=== PATIENT | female | born 1990 | race Caucasian/White ===

== ENCOUNTER 2017-01-28 19:55 | Emergency (ER) | payer BC ==
[~2017-01-28] VITALS: Ht 165.1 cm; Wt 73.3 kg
[2017-01-28 21:10] VITALS: BP 136/84; PULSE 85; RESP 18; TEMP 98.3; O2SAT 98
[2017-01-28] MEDS ORDERED: [UNRECOGNIZED DRUG - REMARK] PO (21:10)
--- NOTE | 2017-01-28 21:41 | PD ---
HPI Chief Complaint: Injury Time Seen by Provider: 21:20 Travel History International Travel<30 days: No Contact w/Intl Traveler<30days: No Traveled to known affect area: No History of Present Illness HPI 26-year-old female presents to the emergency room for evaluation of left third finger deformity and pain. Patient was walking her dog when he pulled and the leash got caught on her finger. She had immediate pain and saw that her finger was facing the wrong way. She reports significant pain and mild paresthesias. She came straight to the emergency room. Patient denies any chronic medical problems. [facility] Past Medical History Medical History: Denies Significant Hx Diminished Hearing: No Immunizations Current: Yes Tetanus Vaccination: < 5 Years Influenza Vaccination: Yes ?: Not LMP: Approx. 3 weeks ago Past Surgical History Surgical History: No Previous Surgery Social History Alcohol Use: No Tobacco Use: No Substance Use: No Allergies-Medications (Allergen,Severity, Reaction): Coded Allergies: No Known Allergies (Verified , 01/28/17) Reported Meds & Prescriptions Reported Meds & Active Scripts Active Reported [ control pills] 1 Tab PO DAILY Review of Systems Except as stated in HPI: all other systems reviewed are Neg Physical Exam Narrative GENERAL: Well-nourished, well-developed female in no acute distress. Afebrile. Ambulatory. SKIN: Focused skin assessment warm/dry. Mild ecchymosis of the left third finger. HEAD: Normocephalic. EYES: No scleral icterus. No injection or drainage. NECK: Supple, trachea midline. No JVD or lymphadenopathy. CARDIOVASCULAR: Regular rate and rhythm without murmurs, gallops, or rubs. RESPIRATORY: Breath sounds equal bilaterally. No accessory muscle use. EXTREMITY: Right third finger tender to palpation. The DIP is dislocated with dorsal angulation. Less than 2 second capillary refill distally. Distal sensation intact. Limited range of motion secondary to pain and dislocation. Data Data Last Documented VS Vital Signs Date Time Temp Pulse Resp B/P Pulse Ox O2 Delivery O2 Flow Rate FiO2 01/28/17 21:10 98.3 85 18 136/84 98 Orders Finger ([id number]) (01/28/17 ) Lidocaine Pf 1% Inj (Xylocaine-Mpf 1% In (01/28/17 21:45) Bupivacaine Pf 0.5% Inj (Marcaine Pf 0.5 (01/28/17 21:45) Finger ([id number]) (01/28/17 ) Splint Or Brace Apply/Monitor (01/28/17 22:37) [facility] Medical Decision Making Medical Screen Exam Complete: Yes Emergency Medical Condition: Yes Medical Record Reviewed: Yes Differential Diagnosis Fracture, sprain, dislocation, contusion Narrative Course 26 year-old female presents to the emergency room for evaluation of left third finger pain, swelling, and obvious deformity after her dog's leash got caught her finger just prior to arrival. Physical exam reveals left third dislocated DIP. Finger is neurovascularly intact with less than 2 second capillary refill distally. Range of motion secondary to pain. X-ray shows fracture dislocation. Digital block was performed and finger was reduced, see procedure note for details. Postreduction x-ray shows anatomical alignment. Patient was placed in an ulnar gutter splint and told to follow-up in one week with her primary care physician for repeat x-rays. Patient was splinted and discharged with instructions to follow up with a hand surgeon or return to the emergency room for worsening symptoms. She understands and agrees to plan. Procedures Procedure Narrative REDUCTION: Patient's finger supported at the MCP joint. Patient's DIP was held longitudinal traction was applied. While maintaining traction, 3. pressure was used to bring the distal fragment alignment with the proximal fragment. Neurovascular status maintained. Splint applied. Diagnosis Primary Impression: Dislocation of left middle finger Qualified Code: S63.253A - Dislocation of left middle finger, initial encounter Referrals: Primary Care Physician Patient Instructions: Finger Dislocation (ED), General Instructions Additional Instructions: Rest and drink plenty of fluids. Keep splint on. Take ibuprofen with food as directed, as needed for pain. Apply ice to the affected area for 20 minutes at a time, as needed for pain and swelling. Follow-up with a hand surgeon. Return to the emergency room for worsening symptoms. Disposition: 01 DISCHARGE HOME Condition: Stable Sangeetha Santo Jan 28, 2017 21:41
[2017-01-28] MEDS ORDERED: LIDOCAINE HCL 1% PF 30 ML VIAL INFIL ONE (21:45)
[2017-01-28] MEDS ORDERED: BUPIVACAINE HCL PF 0.5% 10 ML VIAL INFIL ONE (21:45)
--- NOTE | 2017-01-28 21:54 | RADRPT ---
EXAM DATE/TIME: 01/28/2017 21:18 [facility] COMPARISON: No previous studies available for comparison. INDICATIONS : Left 3rd digit pain after patient injured finger walking her dog today MEDICAL HISTORY : None. SURGICAL HISTORY : None. ENCOUNTER: Initial ACUITY: 1 day PAIN SCORE: 10/10 LOCATION: Left distal 3rd digit FINDINGS: There is no fracture or dislocation at the DIP joint third finger. CONCLUSION: Fracture DIP joint third finger dislocation. Frank Rolon MD FACR on January 28, 2017 at 21:52 Board Certified Radiologist. This report was verified electronically.
--- NOTE | 2017-01-28 22:27 | RADRPT ---
EXAM DATE/TIME: 01/28/2017 22:15 [facility] COMPARISON: FINGER LEFT 3RD DIGIT ([id number]), January 28, 2017, 21:18. INDICATIONS : Posr reduction left third digit dislocation MEDICAL HISTORY : None. SURGICAL HISTORY : None. ENCOUNTER: Initial ACUITY: 1 day PAIN SCORE: 0/10 LOCATION: Left third digit FINDINGS: Alignment is now anatomic with the small corner fracture distal middle phalanx. CONCLUSION: Anatomic alignment. Frank Rolon MD FACR on January 28, 2017 at 22:25 Board Certified Radiologist. This report was verified electronically.
== END 2017-01-28 23:09 | disposition home or self-care (01) ==
LOC: PHEFT 19:55
DX: S63.253A Unspecified dislocation of left middle finger, initial encounter (principal); W23.0XXA Caught, crushed, jammed, or pinched between moving objects, initial encounter; Y93.K1 Activity, walking an animal
CPT/HCPCS: 26700; 73140